=== PATIENT | male | born 1985 | race Caucasian/White ===

== ENCOUNTER 2021-06-19 10:45 | Day surgery (SDC) | payer OTHER, SELFPAY ==
[2021-06-05 08:20] VITALS: BMI 46.6
[2021-06-19] VITALS (10 sets, daily range): BP systolic 105–146; BP diastolic 62–85; PULSE 60–78; RESP 16; TEMP 36.2–36.5; O2SAT 96–100; BMI 42.5
--- NOTE | 2021-06-19 10:47 | HP.PCM_ITS ---
History and Physical Date of Admission: 06/19/21 Intake Vital Signs 06/05/21 08:20 Height 5 ft 7 in Weight: 298 lb BMI 46.6 BP 126/81 H Blood Pressure Location Rt brachial Position Sitting Respiration 18 Pulse 83 Pulse Source NIBP Temp 97.8 F Temp Source Temporal Pulse Oximetry (%) 100 Oxygen Delivery Method room air Intake Visit Reasons: Ventral Hernia Chief Complaint: ventral/umbilical hernia Induction Coordination Power Engineer Required: No Is patient in pain?: No Allergies No Known Allergies Allergy (Verified 06/05/21 08:23) Medications NK 06/05/21 [History Confirmed 06/05/21] [facility] Medical History (Updated 06/05/21 @ 10:[address] Mateo Fajardo MD) Ventral hernia Surgical History (Updated 05/22/21 @ 15:18 by Solange Sims NP, [employer] CLAIM ANALYST-C) Hx of myringotomy Family History (Updated 06/05/21 @ 08:21 by Nicole Hollins) Mother Diabetes Thyroid disorder Grandmother Diabetes Aunt Colon cancer Other Hypertension Social History (Updated 06/05/21 @ 08:21 by Nicole Hollins) Smoking Status: Never smoker HPI HPI HPI: LOIDA ANTONIO, is a 35 M who presents to the office today for bulging in the anterior abdomen. The patient reports that this is been there for 4 years but it has been growing more over the past year. 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 Patient does not have any nausea or vomiting or pain at rest. ROS General General: No weight change, appetite, fatigue, colon cancer, breast cancer or weakness HEENT HEENT: No difficulty swallowing, eye injury, eye surgery, swollen glands or hoarseness Endo Endocrine: No thyroid disease, diabetes mellitus, thyroid cancer, Hair loss, heat intolerance or cold intolerance Musc Musculoskeletal: No back problems, arthritis, rheumatoid arthritis, gout or joint pain Cardio Cardiovascular: No murmur, pacemaker, heart disease, atrial fibrillation, high blood pressure, heart attack, heart stent, palpitations, shortness of breat with exertion or chest pain Psych Psychiatric: No depression, anxiety or hearing voices Resp Respiratory: No shortness of breath, No sleep apnea, No cough, No COPD, No asthma, No emphysema and No wheezing Gastro Gastrointestinal: No abdominal pain, No nausea or vomiting, No diarrhea, No constipation, No blood in stool, No acid reflux, No hemorrhoids, No ulcers, No gallbladder problem and No black,tarry stools Jose Hematologic: No blood thinners, No blood disorders, No bleeding, No anemia and No blood clots Neuro Neurologic: No weakness Exam Const General: cooperative Orientation: alert and oriented x3 HENMT Head: normal to inspection Neck Neck: normal visual inspection and full ROM Chest Chest palpation & inspection: normal inspection of the chest Resp Effort & Inspection: normal respiratory effort Auscultation: clear to auscultation bilaterally Cardio Rate: regular rate Rhythm: regular rhythm GI Inspection: non-distended Palpation: soft, hernia ventral and nontender Skin General: no rashes or lesions noted Neuro General: patient alert and patient oriented x3 Extrem General: full ROM Psych Appearance: grossly normal Mental Status: mental status grossly normal Assessment and Plan Assessment and Plan (1) Ventral hernia: Status: Acute Qualifiers: Obstruction and gangrene presence: without obstruction or gangrene Qualified Code(s): K43.9 - Ventral hernia without obstruction or gangrene Plan - Dr. Mateo Fajardo MD: The patient has a small ventral hernia superior to the umbilicus which is reducible. I discussed ventral hernia repair with mesh with the patient. I discussed the procedure in detail as well as mesh placement. I discussed the risks of the procedure including but not limited to bleeding, infection, injury to underlying bowel or omentum. I discussed the risk of recurrence. The patient's questions were all answered and the patient agrees to proceed with ventral hernia repair with mesh. Mateo Fajardo MD Pager: [facility] [address] [place] [address] [address] [place] [address] Office: I have re-examined the patient. There are no clinical changes since date of exam.
[2021-06-19] MEDS: Lactated Ringers 1,000 ML 100 ML IV (10:55)
[2021-06-19] MEDS: Bupivacaine 0.25% 30 ML Vial (13:30)
--- NOTE | 2021-06-19 14:18 | OP.PCM_ITS ---
Problems Associated Problem List Diagnoses (1) Ventral hernia: Report of Operation Date of Procedure: 06/19/21 Pre-Operative Diagnosis: Ventral hernia Post-Operative Diagnosis: Same Surgery/Procedure Performed:: Ventral hernia repair with mesh Description of Procedure: Patient was brought back to the operating room and general anesthesia was induced. The abdomen was prepped and draped in usual sterile fashion. A vertical incision was marked superior to the umbilicus and incised and deepened to the hernia sac. Hernia sac was dissected free circumferentially. It was reduced and the fascia was grasped and elevated. A preperitoneal space was developed circumferentially. Next a medium Ventralex ST mesh was placed in the preperitoneal space and tacked to the anterior fascia u sing 2-0 PDS suture in 4 quadrants. The area was irrigated and suctioned dry and the hernia defect itself was closed with #1 Nurolon suture in an interrupted fashion. Subcutaneous tissue was irrigated and suctioned dry and the incision was injected with local anesthetic and closed with interrupted 3-0 Vicryl sutures as well as running 4-0 Monocryl suture. Steri-Strips and bandage were applied the patient was awoken and taken to PACU in stable condition. Grafts/Implants Used: Medium Ventralex ST mesh Admit VTE Documentation VTE Mechan Device Prophylaxis: SCD's
--- NOTE | 2021-06-19 14:20 | EX.PCM.DISCH ---
Discharge Instructions Procedure Hernia Diet Discharge Diet: Light diet - advance as tolerated Activity Discharge Activity: May Not Drive (for 2-3 days or while taking narcotic pain meds.) and May Shower (with the bandage in place 1-2 days after surgery.) Lifting Restrictions: 20 pounds for 4 weeks. Additional Activity Instructions:: Climbing stairs is fine, walking is encouraged. Sitting in bed may be uncomfortable. Sitting up using your lateral muscles (sitting up sideways) is usually more comfortable. Do not drive, work heavy equipment of sign legal documents for 24 hours. Ice pack can provide more comfort. Pain medications may cause nausea, you should typically eat light foods as you take your pain medications. Pain medications may also cause constipation. If you have difficulty with this, discuss with your doctor. Dressing / Incision Call your doctor if your incision/area has: Continuous Slow Oozing, Sudden Increased Bleeding, Increased Pain/ Swelling, Increased Redness and Foul Smelling Discharge Call your doctor if you observe: Fever of 101 or Higher Suture Line Care: Avoid Pulling/Pushing and Avoid Pinching/Bending Remove Dressing in: 2 days Follow Up Care Please Follow Up With: Mateo Fajardo MD When: Please call to schedule 2 week follow up appointment. [phone] Test Results: Test results from this visit will be discussed in further detail at your follow-up appointment, if applicable. Discharge Plan Admission Attending Provider: Mateo Fajardo Primary Care Provider: Belkys Andres Primary Discharge Orders/Prescriptions Prescriptions: New oxycodone-acetaminophen [Percocet] 5-325 mg tablet 1 - 2 tab PO Q6H PRN (Reason: pain) 5 Days Qty: 20 RF: 0 Referrals / Follow Up: Care PhysicianBelkys Primary [Primary Care Provider] - Disposition Disposition (needs filled in before D/C Order can be placed): Home, Self Care
--- NOTE | 2021-06-19 16:22 | SUR.PHASEII ---
Patient appears to have had a vagal response. Lightheaded and dizzy upon getting changed for discharge and to go home. This nurse instructed patient to lay back down. Head laid flat, head lowered. VSS taken, see above. Patient feeling better after laying down for a few minutes. at bedside. Educated and understands.
--- NOTE | 2021-06-19 16:23 | SUR.PHASEII ---
Patient's abd dressing changed in phase [address] Fajardo. Patient instructed to change dressing if saturated and to call the doctor/ hospital transmission operator if bleeding does not stop/ there are multiple dressing changes. Patient understands and agrees.
== END 2021-06-19 16:43 | disposition home or self-care (01) ==
LOC: SDC 10:46 → AC 10:46
PROVIDERS: Referring Provider Surgery; Visit Provider Surgery
PROC: (CPT 49560; principal; 2021-06-19 12:15)
DX: K43.9 Ventral hernia without obstruction or gangrene (principal); F17.220 Nicotine dependence, chewing tobacco, uncomplicated; Z20.822 Contact with and (suspected) exposure to COVID-19
CPT/HCPCS: 00752; 49560; 49568; 87426; C1781; J7120; J2405